=== PATIENT | female | born 1995 | race Asian ===

== ENCOUNTER 2019-05-04 04:14 | Observation (INO) | payer OTHER ==
[2019-05-04] MEDS ORDERED: NS 0.9% 1000 ML** 1,000 ML IV ONE (04:52)
[2019-05-04] MEDS ORDERED: Metoclopramide IV* 5 MG/ML 2 ML VIAL IV SLOW PU ONE (04:52)
[2019-05-04] MEDS ORDERED: Morphine 4 MG/ML VIAL (1 ml) 4 MG/ML VIAL IV ONE (04:52)
--- NOTE | 2019-05-04 04:55 | ED ---
Abdominal Pain/Female - HPI Summary HPI Summary: A 24 y/o female presents to [facility] with a chief complaint of RLQ abdominal pain today. At triage the patient rated her pain as a 7/10 in severity. The patient denies any fevers, but reports some N/V. 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 She denies having any abdominal surgeries. - History of Current Complaint Chief Complaint: EDAbdPain Stated Complaint: ABD PAIN PER PT Time Seen by Provider: 05/04/19 04:45 Hx Obtained From: Patient Onset/Duration: Sudden Onset, Lasting Hours, Still Present Timing: Constant Severity Initially: Severe Severity Currently: Severe Pain Intensity: 7 Pain Scale Used: 0-10 Numeric Location: Discrete At: RLQ Radiates: No Character: Other: - unable to describe Aggravating Factor(s): Nothing Alleviating Factor(s): Nothing Associated Signs and Symptoms: Positive: Nausea, Vomiting. Negative: Fever Allergies/Adverse Reactions: Allergies Allergy/AdvReac Type Severity Reaction Status Date / Time No Known Allergies Allergy Verified 05/04/19 04:23 Home Medications: Home Medications NK [No Home Medications Reported] 05/04/19 [History Confirmed 05/04/19] PMH/Surg Hx/FS Hx/Imm Hx Sensory History: Denies: Hx Deafness EENT History: Denies: Hx Deafness - Surgical History Surgery Procedure, Year, and Place: none reported - Immunization History Immunizations Up to Date: Yes Infectious Disease History: No Infectious Disease History: Denies: Traveled Outside the [place] in Last 30 Days - Family History Known Family History: Negative: Blood Disorder - Social History Alcohol Use: None Substance Use Type: Reports: None Smoking Status (MU): Never Smoked Tobacco Review of Systems Negative: Fever Positive: Abdominal Pain, Vomiting, Nausea All Other Systems Reviewed And Are Negative: Yes Physical Exam - Summary Physical Exam Summary: VITAL SIGNS: Reviewed. GENERAL: Patient is a well-developed and nourished FEMALE who is lying comfortable in the stretcher. Patient is not in any acute respiratory distress. HEAD AND FACE: No signs of trauma. No ecchymosis, hematomas or skull depressions. No sinus tenderness. EYES: PERRLA, EOMI x 2, No injected conjunctiva, no nystagmus. EARS: Hearing grossly intact. Ear canals and tympanic membranes are within normal limits. MOUTH: Oropharynx within normal limits. NECK: Supple, trachea is midline, no adenopathy, no JVD, no carotid bruit, no c- spine tenderness, neck with full ROM CHEST: Symmetric, no tenderness at palpation LUNGS: Clear to auscultation bilaterally. No wheezing or crackles. CVS: Regular rate and rhythm, S1 and S2 present, no murmurs or gallops appreciated. ABDOMEN: RLQ tenderness. No signs of distention. No rebound no guarding, and no masses palpated. Bowel sounds are normal. EXTREMITIES: FROM in all major joints, no edema, no cyanosis or clubbing. NEURO: Alert and oriented x 3. No acute neurological deficits. Speech is normal and follows commands. SKIN: Dry and warm Triage Information Reviewed: Yes Vital Signs On Initial Exam: Initial Vitals Temp Pulse Resp BP Pulse Ox 97.8 F 85 18 113/86 97 05/04/19 04:15 05/04/19 04:15 05/04/19 04:15 05/04/19 04:15 05/04/19 04:15 Vital Signs Reviewed: Yes Diagnostics - Vital Signs Vital Signs Temp Pulse Resp BP Pulse Ox 05/04/19 04:15 97.8 F 85 18 113/86 97 - Laboratory Result Diagrams: 05/04/19 05:07 05/04/19 05:07 Lab Statement: Any lab studies that have been ordered have been reviewed, and results considered in the medical decision making process. Abdominal Pain Fem Course/Dx - Course Course Of Treatment: A 24 y/o female presents to [facility] with a chief complaint of RLQ abdominal pain today. The physical exam revealed RLQ tenderness. In the ED course the patient was given Sodium Chloride IV, Reglan IV, Toradol IV, Fentanyl IV and Morphine IV. Bloodwork, chemistries and urines obtained. Ur Leukocyte 3+, Urine WBC 3+, Urine RBC 1+, Ur Squamous Epith Cells present, Urine Bacteria 1+, Hyaline Casts present. This patient will be signed out from Dr. Cortze to Dr. Garcia pending CT abdomen/pelvis and transvaginal ultrasound upon shift change at 07:00 05/04/19. - Diagnoses Provider Diagnoses: Abdominal pain Discharge - Sign-Out/Discharge Documenting (check all that apply): Sign-Out Patient Signing out patient TO: Jackson Garcia - pending CT abdomen/pelvis and transvaginal ultrasound Patient Received Moderate/Deep Sedation with Procedure: No - Discharge Plan Condition: Stable Referrals: No Primary Care Phys,NOPCP [Primary Care Provider] - - Billing Disposition and Condition Condition: STABLE - Attestation Statements Document Initiated by Jaynaibe: Yes Documenting Scribe: Gigi Kan Provider For Whom Scribe is Documenting (Include Credential): Naga Cortez MD Scribe Attestation: I, Gigi Kan, scribed for Naga Cortez MD on 05/04/19 at 0652. Scribe Documentation Reviewed: Yes Provider Attestation: The documentation as recorded by the Gigi ariza accurately reflects the service I personally performed and the decisions made by me, Ngaa Cortez MD Status of Scribe Document: Viewed
[2019-05-04 05:26] LABS: ABS Eosinophils 0.1 10^3/ul (0-0.6); ABS Monocytes 0.5 10^3/ul (0-0.8); ABS Neutrophils 9.2 10^3/ul (1.5-7.7); Eosinophil % 0.5 %; Hematocrit 40 % (35-47); Hemoglobin 13.3 g/dL (12.0-16.0); Lymphocyte % 9.6 %; Mean Corpuscular HGB Conc 33 g/dL (31-36); Mean Corpuscular Hemoglobin 29 pg (27-31); Mean Corpuscular Volume 87 fL (80-97); Mean Platelet Volume 7.3 fL (7.4-10.4); Platelet Count 288 10^3/uL (150-450); Red Blood Count 4.56 10^6 /uL (3.70-4.87); Red Cell Distribution Width 12 % (10-15); White Blood Count 10.8 10^3/uL (3.5-10.8)
[2019-05-04 05:30] LABS: Urine Appearance Cloudy; Urine Bacteria 1+ (Absent); Urine Bilirubin Negative (Negative); Urine Blood Negative (Negative); Urine Color Yellow; Urine Glucose Negative (Negative); Urine Ketones Negative (Negative); Urine Nitrite Negative (Negative); Urine Protein Negative (Negative); Urine Red Blood Cell 1+(3-5/hpf) (Absent); Urine Specific Gravity 1.028 (1.010-1.030); Urine Squamous Epithelial Cell Present (Absent); Urine Urobilinogen Negative (Negative); Urine White Blood Cell 3+(>20/hpf) (Absent)
[2019-05-04] MEDS ORDERED: Ketorolac INJ* 15 MG/ML 1 ML VIAL IV PUSH ONE (05:34)
[2019-05-04] MEDS ORDERED: fentaNYL* 50 MCG/ML 2 ML VIAL (100 MCG VIAL) IV SLOW PU ONE (05:34)
[2019-05-04] MEDS ORDERED: Piperacillin/Tazobac ADVAN(*) 3.375 GM in NS 0.9% 100 ML* 100 ML IVPB ONE ×2 (05:36→15:34)
[2019-05-04 05:43] LABS: ALT 16 U/L (7-52); AST 13 U/L (13-39); Albumin 4.6 g/dL (3.2-5.2); Albumin/Globulin Ratio 1.5 (1-3); Alkaline Phosphatase 61 U/L (34-104); Amylase 43 U/L (29-103); Anion Gap 7 mmol/L (2-11); BUN/Creatinine Ratio 15.9 (8-20); Blood Urea Nitrogen 10 mg/dL (6-24); C Reactive Protein 6.61 mg/L (<8.01); CO2 Carbon Dioxide 25 mmol/L (22-32); Calcium 9.7 mg/dL (8.6-10.3); Chloride 106 mmol/L (101-111); EGFR African American 140.5 (>60); EGFR Non-African American 116.1 (>60); Glucose 128 mg/dL (70-100); Potassium 3.6 mmol/L (3.5-5.0); Sodium 138 mmol/L (135-145); Total Protein 7.6 g/dL (6.4-8.9)
[2019-05-04 05:50] LABS: HCG Pregnancy < 0.60 mIU/mL
[2019-05-04] MEDS ORDERED: Iohexol 300* (CONTRAST) 10 ML SDV IV ONE (06:50)
--- NOTE | 2019-05-04 07:15 | ED ---
Progress - Progress Note Progress Note: This patient is a sign-out from Dr. Cortez to Dr. Gacria upon shift change at 0700 on 05/04/[address] Abd/Pel and Transvaginal US results. Transvaginal US IMPRESSION: 1. NO SONOGRAPHIC FEATURES OF TORSION. PLEASE NOTE THAT PARTIAL OR INTERMITTENT TORSION MAY BE SONOGRAPHICALLY NORMAL. 2. THERE IS A SMALL AMOUNT OF SIMPLE FLUID WITHIN THE CUL-DE-SAC. THIS MAY BE PHYSIOLOGIC IN A REPRODUCTIVE AGE FEMALE. CT Abd/Pel IMPRESSION: Mildly dilated appendix with mural enhancement concerning for potential early acute appendicitis given the clinical context. No periappendiceal abscess or visualized appendicolith. Dr. Ware reports the patient's imaging results. I will consult surgery for further workup. At 0830, Dr. Dhillon from surgery says he will come to evaluate the patient for early appendicitis. At 1030, I discuss the patient's case with Dr. Mcqueen, hospitalist. She agrees to admit the patient. - Results/Orders Results/Orders: Transvaginal US IMPRESSION: 1. NO SONOGRAPHIC FEATURES OF TORSION. PLEASE NOTE THAT PARTIAL OR INTERMITTENT TORSION MAY BE SONOGRAPHICALLY NORMAL. 2. THERE IS A SMALL AMOUNT OF SIMPLE FLUID WITHIN THE CUL-DE-SAC. THIS MAY BE PHYSIOLOGIC IN A REPRODUCTIVE AGE FEMALE. These findings were reviewed by Dr. Garcia. CT Abd/Pel IMPRESSION: Mildly dilated appendix with mural enhancement concerning for potential early acute appendicitis given the clinical context. No periappendiceal abscess or visualized appendicolith. These findings were reviewed by Dr. Garcia. Re-Evaluation - Re-Evaluation First Eval Re-Evaluation Time: 08:57 Comment: Patient says she is going to [place] next week and prefers not to get surgery for her appendicitis. She still looks uncomfortable. Course/Dx - Course Course Of Treatment: This patient is a sign-out from Dr. Cortez to Dr. Garcia upon shift change at 0700 on 05/04/[address] Abd/Pel and Transvaginal US results. Transvaginal US IMPRESSION: 1. NO SONOGRAPHIC FEATURES OF TORSION. PLEASE NOTE THAT PARTIAL OR INTERMITTENT TORSION. MAY BE SONOGRAPHICALLY NORMAL. 2. THERE IS A SMALL AMOUNT OF SIMPLE FLUID WITHIN THE CUL-DE-SAC. THIS MAY BE PHYSIOLOGIC. IN A REPRODUCTIVE AGE FEMALE. CT Abd/Pel IMPRESSION: Mildly dilated appendix with mural enhancement concerning for potential early acute. appendicitis given the clinical context. No periappendiceal abscess or visualized. appendicolith. At 1030, I discuss the patient's case with Dr. Mcqueen , hospitalist. She agrees to admit the patient. The patient's final diagnosis is early appendicitis. I discussed admit plan to the patient. Patient is agreeable. - Diagnoses Provider Diagnoses: Abdominal pain, Appendicitis Is Visit Related: No - Provider Notifications Discussed Care Of Patient With: Woody Ware - radiologist Time Discussed With Above Provider: 08:05 Instructed by Provider To: Other - Dr. Ware reports the patient's imaging results. I will consult surgery for further workup. At 0830, Dr. Dhillon from surgery says he will come to evaluate the patient for early appendicitis. At 1030, I discuss the patient's case with Dr. Mcqueen, hospitalist. She agrees to admit the patient. Discharge - Sign-Out/Discharge Documenting (check all that apply): Patient Departure - admit, Receiving Sign- Out Receiving patient FROM: Naga Cortez - This patient is a sign-out from Dr. Cortez pending CT Abd/Pel and transvaginal US results. Patient Received Moderate/Deep Sedation with Procedure: No - Discharge Plan Condition: Good Disposition: ADMITTED TO [facility] - Billing Disposition and Condition Condition: GOOD Disposition: Admitted to [facility] - Attestation Statements Document Initiated by Rachel: Yes Documenting Scribe: Livan Austin Provider For Whom Rachel is Documenting (Include Credential): Dr. Jackson Garcia MD Scribe Attestation: I, Livan Austin, scribed for Dr. Jackson Garcia MD on 05/05/19 at 0521. Scribe Documentation Reviewed: Yes Provider Attestation: The documentation as recorded by the Livan ariza accurately reflects the service I personally performed and the decisions made by me, Dr. Jackson Garcia MD Status of Scribe Document: Viewed
[2019-05-04] MEDS ORDERED: HYDROmorphone INJ1* 1 MG/ML SYRINGE IV SLOW PU PRN (10:35)
[2019-05-04] MEDS ORDERED: Ondansetron INJ* 2 MG/ML VIAL IV PRN ×2 (10:35→17:14)
[2019-05-04] MEDS ORDERED: Lactated Ringers 1000 ML Bag* 1,000 ML IV SCH (11:00)
--- NOTE | 2019-05-04 11:44 | HP ---
DATE OF ADMISSION: 05/04/2019. ATTENDING SURGEON: Dr. Joby Dhillon* (LORETO Welsh dictating). CHIEF COMPLAINT: Abdominal pain. HISTORY OF PRESENT ILLNESS: This is a 24-year-old, generally healthy female who noted onset of periumbilical pain around midnight last night. This was associated with some bloating and at some point nausea and vomiting times two. She states that the pain increased and shifted to the right lower quadrant and she decided around 3:30 to come into the ED. She said her pain upon presentation did increase to 8 to 9/10. She received Morphine initially without effect and then Ketoralac and a single dose of Fentanyl around 5:30 this morning with positive effect. She states that at the present time her pain is 0/10. She is hungry at present. She denies fever or chills. 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 She had not had any prior similar symptoms. No prior abdominal surgeries and no recent travel history (she does anticipate flying home to [place] on 05/09/2019). PAST MEDICAL HISTORY: Unremarkable for any significant past or present medical problems. She has not had any prior surgeries. CURRENT MEDICATIONS: None. She does take a daily multivitamin. DRUG ALLERGIES: None. FAMILY HISTORY: Negative for anesthesia problems, bleeding or clotting disorders. 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 She lives alone in her own apartment. She denies the use of tobacco. She drinks alcohol rarely and denies other recreational drug use. REVIEW OF SYSTEMS: General: No recent constitutional symptoms or acute illnesses other than described in the HPI. Her weight has been stable. HEENT: No problems reported. Cardiovascular: No history of chest pain, palpations or heart murmur. Respiratory: No chronic cough, shortness of breath, history of asthma. GI: As above per HPI. No additions. : No symptoms reported. 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 She states that she is not sexually active and has not had a baseline Pap smear. Endocrine: No diabetes or thyroid dysfunction. The remainder of the review of systems is negative. PHYSICAL EXAMINATION GENERAL: Well-nourished, well-developed female in no acute distress. She sits up easily on the stretcher and is smiling. SKIN: Warm and dry. No suspicious rashes or lesions. VITAL SIGNS: Height 5 feet, weight 130 pounds. Temperature 97.8, blood pressure 93/59, pulse 74, respirations 18. HEENT: Pupils equal, round, and reactive. EOM's intact. No conjunctival pallor or scleral icterus. Oropharynx: Mucus membranes slightly dry. No intraoral lesions. NECK: No lymphadenopathy, thyromegaly, or masses. LUNGS: Clear to auscultation. No wheezes. HEART: Regular rate and rhythm. No murmur noted. BREASTS: Not examined. ABDOMEN: Flat, nondistended. Bowel sounds present, though somewhat hypoactive. Mild tenderness in the right lower quadrant without rebound or guarding. No referred tenderness. The remainder of the abdomen is soft and nontender. GENITALIA: Not done. RECTAL: Not done. NEUROLOGIC: Grossly intact. LABORATORY DATA: Of note, white blood cell count 10,800 with left shift, hemoglobin 13.3. Chemistries are essentially normal, including CRP of 6.6, amylase and lipase. Her beta HCG is negative. Urinalysis is notable for 3+ leukocytes, 3+ white cells, and 1+ red cells. She underwent a transvaginal ultrasound which was essentially negative. CT scan of the abdomen and pelvis with oral contrast demonstrates a 0.8 cm diameter appendix with mural enhancement, but without periappendiceal inflammatory changes. No other abnormalities noted. IMPRESSION: Acute appendicitis, mild, early. PLAN: Admission for observation with serial physical exam, including confirmation by Dr. Dhillon. At this point, she will be booked with the OR for planned laparoscopic appendectomy pending repeat exam by Dr. Dhillon. LORETO WELSH [id number]/[facility] #: [id number] [facility]OSPITALNimo
[2019-05-04] MEDS ORDERED: ceFAZolin VIAL(*) 2 GM in NS 0.9% 100 ML* 100 ML IVPB ONE (12:00)
[2019-05-04] MEDS ORDERED: metroNIDAZOLE IV 500 MG/100ML* 500 MG/100 ML BAG IVPB ONE (12:00)
[2019-05-04] MEDS ORDERED: ceFAZolin 2 GM in NS 100 ml - ONCE (Pharmacy Admix) IVPB ONE (14:00)
--- NOTE | 2019-05-04 15:32 | HP ---
H&P (Free Text) History and Physical: I saw and evaluated the patient. Agree with NPP's note. Dx: acute appendicitis Plan : laparoscopic appendectomy\ abx void OCTOR
[2019-05-04] MEDS ORDERED: fentaNYL* 50 MCG/ML 5 ML VIAL (250 MCG VIAL) ONE (16:15)
[2019-05-04] MEDS ORDERED: Ondansetron INJ* 2 MG/ML VIAL ONE (16:16)
[2019-05-04] MEDS ORDERED: Midazolam* 1 MG/ML 5 ML VIAL (5 MG) ONE (16:16)
[2019-05-04] MEDS ORDERED: Ketorolac INJ* 30 MG/ML 1 ML VIAL ONE (16:16)
[2019-05-04] MEDS ORDERED: Propofol* 10 MG/ML 20 ML BTL ONE (16:16)
[2019-05-04] MEDS ORDERED: Atracurium* 10 MG/ML 10 ML VIAL ONE (16:16)
[2019-05-04] MEDS ORDERED: Dexamethasone IV* 4 MG/ML 1 ML (4 MG) IV SLOW PU ONE (16:24)
[2019-05-04] MEDS ORDERED: Famotidine IV* 10 MG/ML 2 ML (20 mg) IV ONE (16:24)
[2019-05-04] MEDS ORDERED: Buffered Lidocaine 1% SYRIN* 1 ML/SYRINGE INTRADERM ONE (16:24)
[2019-05-04] MEDS ORDERED: Dexamethasone IV* 4 MG/ML 1 ML (4 MG) ONE (16:31)
[2019-05-04] MEDS ORDERED: Famotidine IV* 10 MG/ML 2 ML (20 mg) ONE (16:31)
[2019-05-04] MEDS ORDERED: Bupivacaine 0.25% EPI 200,000* 30 ML SDV ONE (16:55)
[2019-05-04] MEDS ORDERED: DiMENhydriNATE IV* 50 MG/ML VIAL IV PUSH PRN (17:14)
[2019-05-04] MEDS ORDERED: Scopolamine 1.5 mg* PATCH TRANSDERM PRN (17:14)
[2019-05-04] MEDS ORDERED: HYDROmorphone INJ1* 1 MG/ML SYRINGE IV PRN (17:14)
[2019-05-04] MEDS ORDERED: oxyCODONE/Acetamin 5/325 MG* TAB PO PRN ×2 (17:14→19:41)
[2019-05-04] MEDS ORDERED: fentaNYL* 50 MCG/ML 2 ML VIAL (100 MCG VIAL) IV PRN (17:14)
[2019-05-04] MEDS ORDERED: Naloxone* 0.4 MG/ML 1 ML VIAL IV PRN (17:14)
[2019-05-04] MEDS ORDERED: Lidocaine 2% PF * 5 ML VIAL ONE (17:28)
[2019-05-04] MEDS ORDERED: Glycopyrrolate IV* 0.2 MG/ML 1 ML VIAL ONE (17:28)
--- NOTE | 2019-05-04 18:06 | BRIEFOPN ---
Brief Operative Note - Surgery Procedures: Pre-OP Diagnoses: acute appendicitis Post-op Diagnosis: same Procedure: Laparoscopic appendectomy Surgeon: Jacquie Asst: none Anethesia: JOSHUAA EBL: minimal IVF: crystalloid Specimen: appendix Drains: none
[2019-05-04] MEDS: Lactated Ringers 1000 ML Bag* 1,000 ML IV SCH (19:30)
--- NOTE | 2019-05-04 23:08 | OP ---
CC: Primary Care Doctor ? * DATE OF OPERATION: 05/04/19 - ROOM #352 DATE OF : 89 SURGEON: Joby Dhillon M.D. LOG RAFTER: None. ANESTHESIOLOGIST: Dr. Godoy. ANESTHESIA: General. PRE-OP DIAGNOSIS: Acute appendicitis. POST-OP DIAGNOSIS: Acute appendicitis. OPERATIVE PROCEDURE: Laparoscopic appendectomy. ESTIMATED BLOOD LOSS: Minimal blood loss. FLUIDS: Minimal crystalloid fluid given. SPECIMEN: Appendix. COUNTS: Lap pad count and instrument count correct at the end of the procedure. INDICATIONS: I had already discussed with her the risks, benefits, and alternatives to laparoscopic appendectomy. I went over the possible alternatives of watchful waiting and antibiotics. The patient wished to proceed with appendectomy. I spoke about possible complications, which include, but were not limited to bleeding, infection, abscess formation, need for additional procedures, need for open procedure, and injury to adjacent organs. The patient agreed and signed consent was marked. DESCRIPTION OF PROCEDURE: The patient was taken to the operating room, placed on the operating table in supine position. Preoperative antibiotics were given. Sequential devices were placed on the bilateral lower extremities and general anesthesia was induced. The patient's abdomen was prepped and draped in standard surgical fashion. A time-out was performed. An infraumbilical incision was made. The skin was elevated and a Veress needle inserted into the abdominal cavity, which was then allowed to insufflate to pressure of 15 mmHg. The patient tolerated insufflation well. The Veress needle was removed and a 5-mm optical trocar was then inserted. Laparoscope was inserted through this. There was no evidence of injury from the trocar insertion or from the Veress needle. An additional trocar was then placed in the following positions, a 5-mm in the left lower quadrant, a 5-mm in the suprapubic area. Table was repositioned. A dilated appendix was clearly identified. This was grasped and elevated anteriorly. The appendiceal artery was easily identified and the mesentery overlying this was cleared up with cautery. We were able to lyse lateral attachments of the appendix from the lateral abdominal wall. Next , we doubly clipped the artery and ligated it. Next, with the appendix up, we placed a 0 Polysorb Endoloop to and all right at the base of the appendix through healthy tissue. I cut in between the 2 Endoloops, but it turned out they were close to each other at the lateral margin ; and, because of this, the Endoloop that was to remain had started to slip off. There was no soilage at this time. The appendix was placed in an endoscopic retrieval bag and placed over the liver. Attention was turned towards the Endoloop at the base of the cecum that was starting to fall off, and we utilized 2-0 silk suture and removed the Endoloop and then closed the orifice, which again showed no leaking of any enteric contents, but did have some oozing of blood that stopped. Once this was closed , we put a second layer to imbricate the initial suture. Attention was turned towards some of the blood clot where the appendix had been. We suctioned this off and again no enteric contents were identified, and I felt confident that we closed the orifice without any real soilage. Next, the appendix in its endoscopic retrieval bag was brought out through the umbilical port and passed off as specimen. We allowed the abdomen to collapse. Trocars were removed under direct vision. I irrigated the umbilical incision site and reapproximated all incisions with 4-0 Monocryl subcuticular sutures followed by Steri-Strips and sterile dressing. The patient tolerated the procedure well. [id number]/[facility] #: [id number] MTDD
[2019-05-05] MEDS ORDERED: ZOSYN 3.375 GM x ONE DOSE over 30 miuntes IVPB ×2 (02:00)
[2019-05-05] MEDS: Lactated Ringers 1000 ML Bag* 1,000 ML IV SCH (04:10)
[2019-05-05 11:12] VITALS: BP 112/65
--- NOTE | 2019-05-05 11:29 | PN ---
Progress Note - Progress Note Date of Service: 05/05/19 Note: S: POD #1. Doing well. Denies pain. Tra diet; passing flatus. Ambulating. O: Vital Signs - 8 hr 05/05/19 05/05/19 05/05/19 03:51 04:13 07:30 Temperature 97.8 F Pulse Rate 63 Respiratory 16 16 Rate Blood Pressure 98/49 (mmHg) O2 Sat by Pulse 97 98 100 Oximetry 05/05/19 05/05/19 07:31 11:10 Temperature 98.7 F 98.7 F Pulse Rate 57 94 Respiratory 16 16 Rate Blood Pressure 112/61 112/65 (mmHg) O2 Sat by Pulse 100 100 Oximetry Intake and Output Last 24 Hours 05/03/19 05/04/19 05/05/19 05/06/19 06:59 06:59 06:59 06:59 Intake Total 20 2333 460 Output Total 1350 1400 Balance 20 983 -940 Weight 130 lb 124 lb 15.998 oz Intake: IV Fluids 20 2108 ABX - PIPERACILLIN 105 LR 803 NS 100ML, Zosyn 3.375G 100 IVPB 105 ABX - CEFAZOLIN 105 Oral 120 460 Output: Urine 1350 1400 Other: # Bowel Movements 0 Gen: sitting up in bed; comfortable Heart: reg Lungs: clear Abd: lap sites ok; some serosang saturation of gauze at umbilical dsg; no pooling or leakage; others are clean and dry; soft, nontender to palp A: s/p lap appy for acute nonrupt'd appendicitis, doing well P: ok for d/c; instructions reviewed; office f/u 05/08
--- NOTE | 2019-05-05 11:54 | DS ---
AMENDED REPORT NOW INCLUDES DESIGNATED COSIGNER DISCHARGE SUMMARY: DATE OF ADMISSION: 05/04/19 DATE OF DISCHARGE: 05/05/19 ATTENDING SURGEON: Dr. Joby Dhillon * (LORETO Welsh dictating). HOSPITAL COURSE: Please refer to admission history and physical and operative note for details. The patient presented with clinical course and imaging consistent with acute appendicitis. She was taken to the operating room on and underwent laparoscopic appendectomy with Dr. Dhillon. Findings at the time included gross appearance of acute appendicitis without rupture or perforation. She has had an uneventful postoperative course and as of the morning of discharge is tolerating diet well and having no significant pain. See separate progress note from the same date. IMPRESSION: Status post laparoscopic appendectomy for acute nonruptured appendicitis, doing well. PLAN: Home today. Instructions were reviewed regarding wound care, activity, and diet. She has a followup set up for our office on 05/08/19. Dr. Dhillon did agree that she could fly as scheduled home to [place] on 05/09/19, barring any problems between now and then. The patient is discharged to home in good condition. LORETO WELSH [id number]/[facility] [place] #: [id number] MTDNimo
== END 2019-05-05 12:20 | disposition home or self-care (01) ==
LOC: ED 04:14 → SSU 10:30
PROVIDERS: ADMIT Surgery; ATTEND Surgery
DX: K35.80 Unspecified acute appendicitis (principal); R10.9 Unspecified abdominal pain; R11.2 Nausea with vomiting, unspecified
CPT/HCPCS: 36415; 74177; 76830; 80053; 81003; 81015; 82150; 83690; 83735; 84702; 85025; 86140; 87086; 88304; 96365; 96375; 99284; G0378; J0690; J1100; J1885; J2250; J2270; J2405; J2543; J2704; J2765; J3010; J3490; Q9967